=== PATIENT | male | born 1940 ===

== ENCOUNTER → 2017-02-25 | Outpatient (CLI) | payer MEDICARE, BC | END | disposition home or self-care (01) | LOC: ECT 09:20 | DX: F33.2 Major depressive disorder, recurrent severe without psychotic features (principal); G20 Parkinson's disease; J45.909 Unspecified asthma, uncomplicated; I10 Essential (primary) hypertension ==

== ENCOUNTER 2017-03-17 06:41 | Outpatient (RCR) | payer MEDICARE, BC ==
[~2017-03-17] VITALS: Ht 172.7 cm; Wt 74.8 kg
[2017-03-17] MEDS ORDERED: Methohexital Sodium Syr 100mg/10ml IVP ONE (06:42)
[2017-03-17] MEDS ORDERED: Succinylcholine 20mg/ml 10ml vial ONE (06:42)
[2017-03-17] MEDS ORDERED: Midazolam 2mg/2ml Inj ONE (06:42)
[2017-03-17] MEDS ORDERED: NS 550ML IV ONE (06:42)
[2017-03-17] MEDS ORDERED: Midazolam 2mg/2ml Inj IVP PRN (08:58)
[2017-03-17] MEDS ORDERED: Atropine Sulfate 0.4mg/ml inj IVP PRN (08:58)
[2017-03-19] MEDS ORDERED: Methohexital Sodium Syr 100mg/10ml IVP ONE (08:50)
[2017-03-19] MEDS ORDERED: Succinylcholine 20mg/ml 10ml vial ONE (08:50)
[2017-03-19] MEDS ORDERED: Midazolam 2mg/2ml Inj ONE (08:50)
[2017-03-19] MEDS ORDERED: NS 550ML IV ONE (08:50)
[2017-03-19] MEDS ORDERED: Midazolam 2mg/2ml Inj IVP PRN (09:46)
[2017-03-19] MEDS ORDERED: Atropine Sulfate 0.4mg/ml inj IVP PRN ×2 (09:46)
[2017-03-21] MEDS ORDERED: NS 550ML IV ONE (07:00)
[2017-03-21] MEDS ORDERED: Methohexital Sodium Syr 100mg/10ml IVP ONE (07:00)
[2017-03-21] MEDS ORDERED: Succinylcholine 20mg/ml 10ml vial ONE (07:00)
[2017-03-21] MEDS ORDERED: Diazepam 10mg/2ml Inj ONE (07:00)
[2017-03-21] MEDS ORDERED: Atropine Sulfate 0.4mg/ml inj IVP PRN (09:03)
[2017-03-24] MEDS ORDERED: Diazepam 10mg/2ml Inj ONE (19:47)
[2017-03-24] MEDS ORDERED: NS 550ML IV ONE (19:47)
[2017-03-24] MEDS ORDERED: Methohexital Sodium 500mg Vial IVP ONE (19:47)
[2017-03-24] MEDS ORDERED: Succinylcholine 20mg/ml 10ml vial ONE (19:47)
[2017-03-26] MEDS ORDERED: NS 550ML IV ONE (07:00)
[2017-03-26] MEDS ORDERED: Succinylcholine 20mg/ml 10ml vial ONE (07:00)
[2017-03-26] MEDS ORDERED: Diazepam 10mg/2ml Inj ONE (07:00)
[2017-03-26] MEDS ORDERED: Methohexital Sodium Syr 100mg/10ml IVP ONE (07:00)
[2017-03-28] MEDS ORDERED: Diazepam 10mg/2ml Inj ONE (07:00)
[2017-03-28] MEDS ORDERED: NS 550ML IV ONE (07:00)
[2017-03-28] MEDS ORDERED: Succinylcholine 20mg/ml 10ml vial ONE (07:00)
[2017-03-28] MEDS ORDERED: Methohexital Sodium Syr 100mg/10ml IVP ONE (07:00)
[2017-03-31] MEDS ORDERED: Diazepam 10mg/2ml Inj ONE (14:56)
[2017-03-31] MEDS ORDERED: Methohexital Sodium Syr 100mg/10ml IVP ONE (14:56)
[2017-03-31] MEDS ORDERED: NS 550ML IV ONE (14:56)
[2017-03-31] MEDS ORDERED: Succinylcholine 20mg/ml 10ml vial ONE (14:56)
[2017-04-02] MEDS ORDERED: Methohexital Sodium Syr 100mg/10ml IVP ONE (08:00)
[2017-04-02] MEDS ORDERED: Diazepam 10mg/2ml Inj ONE (08:00)
[2017-04-02] MEDS ORDERED: NS 550ML IV ONE (08:00)
[2017-04-02] MEDS ORDERED: Succinylcholine 20mg/ml 10ml vial ONE (08:00)
[2017-04-04] MEDS ORDERED: Methohexital Sodium Syr 100mg/10ml IVP ONE (08:00)
[2017-04-04] MEDS ORDERED: NS 550ML IV ONE (08:00)
[2017-04-04] MEDS ORDERED: Diazepam 10mg/2ml Inj ONE (08:00)
[2017-04-04] MEDS ORDERED: Succinylcholine 20mg/ml 10ml vial ONE (08:00)
[2017-04-09] MEDS ORDERED: Methohexital Sodium Syr 100mg/10ml IVP ONE (12:30)
[2017-04-09] MEDS ORDERED: NS 550ML IV ONE (12:30)
[2017-04-09] MEDS ORDERED: Diazepam 10mg/2ml Inj ONE (12:30)
[2017-04-09] MEDS ORDERED: Succinylcholine 20mg/ml 10ml vial ONE (12:30)
== END 2017-04-11 | disposition home or self-care (01) ==
LOC: ECT 06:41
DX: F33.2 Major depressive disorder, recurrent severe without psychotic features (principal); I10 Essential (primary) hypertension; G20 Parkinson's disease
CPT/HCPCS: 90870; J0330; J2250; J3360; J3490; J7040

== ENCOUNTER 2017-04-16 06:16 | Outpatient (RCR) | payer MEDICARE, BC ==
[~2017-04-16] VITALS: Ht 172.7 cm; Wt 74.8 kg
[2017-04-16] MEDS ORDERED: Diazepam 10mg/2ml Inj ONE (06:17)
[2017-04-16] MEDS ORDERED: Succinylcholine 20mg/ml 10ml vial ONE (06:17)
[2017-04-16] MEDS ORDERED: NS 550ML IV ONE (06:17)
[2017-04-16] MEDS ORDERED: Methohexital Sodium Syr 100mg/10ml IVP ONE (06:17)
[2017-04-23] MEDS ORDERED: Diazepam 10mg/2ml Inj ONE (07:00)
[2017-04-23] MEDS ORDERED: Succinylcholine 20mg/ml 10ml vial ONE (07:00)
[2017-04-23] MEDS ORDERED: NS 550ML IV ONE (07:00)
[2017-04-23] MEDS ORDERED: Methohexital Sodium Syr 100mg/10ml IVP ONE (07:00)
[2017-05-02] MEDS ORDERED: NS 550ML IV ONE (07:00)
[2017-05-02] MEDS ORDERED: Succinylcholine 20mg/ml 10ml vial ONE (07:00)
[2017-05-02] MEDS ORDERED: Methohexital Sodium Syr 100mg/10ml IVP ONE (07:00)
[2017-05-02] MEDS ORDERED: Diazepam 10mg/2ml Inj ONE (07:00)
== END 2017-05-12 | disposition home or self-care (01) ==
LOC: ECT 06:16
DX: F33.2 Major depressive disorder, recurrent severe without psychotic features (principal)
CPT/HCPCS: 90870; J0330; J3360; J7040

== ENCOUNTER 2017-05-14 05:17 | Outpatient (RCR) | payer MEDICARE, BC ==
[~2017-05-14] VITALS: Ht 172.7 cm; Wt 74.8 kg
[2017-05-14] MEDS ORDERED: NS 550ML IV ONE (05:18)
[2017-05-14] MEDS ORDERED: Methohexital Sodium Syr 100mg/10ml IVP ONE (05:18)
[2017-05-14] MEDS ORDERED: Succinylcholine 20mg/ml 10ml vial ONE (05:18)
[2017-06-02] MEDS ORDERED: Succinylcholine 20mg/ml 10ml vial ONE (07:00)
[2017-06-02] MEDS ORDERED: Methohexital Sodium Syr 100mg/10ml IVP ONE (07:00)
[2017-06-02] MEDS ORDERED: NS 550ML IV ONE (07:00)
== END 2017-06-12 | disposition home or self-care (01) ==
LOC: ECT 05:17
DX: F33.2 Major depressive disorder, recurrent severe without psychotic features (principal)
CPT/HCPCS: 90870; J0330; J3360; J7040

== ENCOUNTER 2017-06-25 11:00 | Outpatient (RCR) | payer MEDICARE, BC ==
[~2017-06-25] VITALS: Ht 33 cm; Wt 0.5 kg
[~2017-06-25 11:00] MED LIST: Sodium Chloride 500ML 500 ML IV ONE
[2017-06-25] MEDS ORDERED: Methohexital Sodium Syr 100mg/10ml IVP ONE (11:01)
[2017-06-25] MEDS ORDERED: NS 500ML IV ONE (11:01)
[2017-06-25] MEDS ORDERED: Succinylcholine 20mg/ml 10ml vial ONE (11:01)
== END 2017-07-12 | disposition home or self-care (01) ==
LOC: ECT 11:00
DX: F33.2 Major depressive disorder, recurrent severe without psychotic features (principal)
CPT/HCPCS: 90870; J0330; J3360; J7040

== ENCOUNTER 2017-07-21 07:01 | Outpatient (RCR) | payer MEDICARE, BC ==
[~2017-07-21] VITALS: Ht 172.7 cm; Wt 74.8 kg
[2017-07-21] MEDS ORDERED: Methohexital Sodium Syr 100mg/10ml IVP ONE (07:02)
[2017-07-21] MEDS ORDERED: Succinylcholine 20mg/ml 10ml vial ONE (07:02)
[2017-07-21] MEDS ORDERED: NS 500ML IV ONE (07:02)
[2017-07-21] MEDS ORDERED: Sodium Chloride 500ML 500 ML IV ONE (09:04)
== END 2017-08-12 | disposition home or self-care (01) ==
LOC: ECT 07:01
DX: F33.2 Major depressive disorder, recurrent severe without psychotic features (principal)
CPT/HCPCS: 90870; J0330; J3360; J7040

== ENCOUNTER 2017-08-20 07:16 | Outpatient (RCR) | payer MEDICARE, BC ==
[~2017-08-20] VITALS: Ht 172.7 cm; Wt 74.8 kg
[2017-09-10] MEDS ORDERED: NS 500ML ONE (08:00)
[2017-09-10] MEDS ORDERED: Methohexital Sodium Syr 100mg/10ml IVP ONE (08:00)
[2017-09-10] MEDS ORDERED: Succinylcholine 20mg/ml 10ml vial ONE (08:00)
[2017-09-10] MEDS ORDERED: Sodium Chloride 500ML 500 ML IV ONE (10:15)
[2017-09-10 10:20] VITALS: BP 158/63
[2017-09-10 10:25] VITALS: BP 162/67
[2017-09-10 10:30] VITALS: BP 146/65
[2017-09-10 10:35] VITALS: BP 135/64
== END 2017-09-11 | disposition home or self-care (01) ==
LOC: ECT 07:16
DX: F33.2 Major depressive disorder, recurrent severe without psychotic features (principal)
CPT/HCPCS: 90870; J0330; J3360; J7040

== ENCOUNTER 2017-10-08 06:07 | Outpatient (RCR) | payer MEDICARE, BC ==
[~2017-10-08] VITALS: Ht 172.7 cm; Wt 74.8 kg
[2017-10-08] MEDS ORDERED: Methohexital Sodium Syr 100mg/10ml IVP ONE (06:08)
[2017-10-08] MEDS ORDERED: NS 500ML ONE (06:08)
[2017-10-08] MEDS ORDERED: Succinylcholine 20mg/ml 10ml vial ONE (06:08)
[2017-10-08 09:13] VITALS: BP 195/91
[2017-10-08] MEDS ORDERED: Sodium Chloride 500ML 500 ML IV ONE (09:33)
[2017-10-08] MEDS ORDERED: Atropine Sulfate 0.4mg/ml inj IVP PRN (09:33)
[2017-10-08 09:35] VITALS: BP 144/68
[2017-10-08 09:40] VITALS: BP 150/49
[2017-10-08 09:45] VITALS: BP 137/56
[2017-10-08 09:50] VITALS: BP 146/46
== END 2017-10-12 | disposition home or self-care (01) ==
LOC: ECT 06:07
DX: F33.2 Major depressive disorder, recurrent severe without psychotic features (principal)
CPT/HCPCS: 90870; J0330; J3360; J7040

== ENCOUNTER 2017-11-19 05:37 | Outpatient (RCR) | payer MEDICARE, BC ==
[~2017-11-19] VITALS: Ht 172.7 cm; Wt 74.8 kg
[2017-11-19] MEDS ORDERED: NS 500ML ONE (05:38)
[2017-11-19] MEDS ORDERED: Succinylcholine 20mg/ml 10ml vial ONE (05:38)
[2017-11-19] MEDS ORDERED: Methohexital Sodium Syr 100mg/10ml IVP ONE (05:38)
[2017-11-19 08:49] VITALS: BP 201/112
[2017-11-19] MEDS ORDERED: Sodium Chloride 500ML 500 ML IV ONE (09:08)
[2017-11-19 09:10] VITALS: BP 156/62
[2017-11-19 09:15] VITALS: BP 150/109
[2017-11-19 09:20] VITALS: BP 160/85
== END 2017-12-10 | disposition home or self-care (01) ==
LOC: ECT 05:37
DX: F33.2 Major depressive disorder, recurrent severe without psychotic features (principal); I10 Essential (primary) hypertension; J45.909 Unspecified asthma, uncomplicated; G20 Parkinson's disease
CPT/HCPCS: 90870; J0330; J3360; J7040